=== PATIENT | male | born 1995 | race Asian ===

== ENCOUNTER 2016-09-14 02:14 | Emergency (ER) | payer OTHER ==
[~2016-09-14] VITALS: Ht 165.1 cm; Wt 80.7 kg
[2016-09-14 02:21] VITALS: TEMP 36.7; Ht 165.1 cm; Wt 80.7 kg
--- NOTE | 2016-09-14 02:25 | EMERGENCY ROOM VISIT NOTE ---
History Report prepared by Ronda: Tawanna Sepulveda Under the Supervision of: Dr. Srinivasan Barreto M.D. First contact with patient: 02:19 Stated Complaint: ALCOHOL OVERDOSE History of Present Illness The patient is a 20 year old male who presents to the Emergency Room with complaints of an alcohol overdose that occurred prior to arrival. Per EMS the patient was drinking Trash-cans this evening that consist of vodka and redbull. EMS notes that they [place] the patient [place] stumbling into traffic. The patient denies any drug use. He denies any trauma. The history is limited secondary to alcohol intoxication. Source of History: patient, EMS History Limited By: intoxication Onset: prior to arrival Position: other (global) Quality: other (alcohol overdose) Review of Systems The history and ROS is limited secondary to alcohol intoxication. Past Medical & Surgical Unobtainable secondary to alcohol intoxication. Family History Unobtainable Social History Smoking Status: Unknown if Ever Smoked Alcohol Use: occasionally Housing Status: lives with friends Occupation Status: [employer] student Current/Historical Medications No Active Prescriptions or Reported Meds Allergies Coded Allergies: No Known Allergies (Unverified , 09/14/16) Physical Exam Vital Signs Date Time Temp Pulse Resp B/P Pulse Ox O2 Delivery O2 Flow Rate FiO2 09/14/16 08:09 78 16 146/85 99 09/14/16 06:38 80 18 133/73 98 Room Air 09/14/16 06:28 88 09/14/16 05:20 83 18 119/58 96 Room Air 09/14/16 03:43 96 18 120/72 98 Room Air 09/14/16 02:34 120 09/14/16 02:21 36.7 72 20 128/52 96 Room Air Physical Exam GENERAL: Patient is heavily intoxicated. Smells of alcohol. Well appearing and in no acute distress. HEAD: No evidence of Trauma. AT/NC EYES: Injected conjunctiva. Normal EOM. Pupils equal/reactive. ENT: Mucous membranes moist, no nasal congestion, . NECK: No step-offs, no adenopathy, no meningismus, trachea is midline. LUNGS: No dyspnea. Clear to auscultation and equal bilaterally. No wheeze, no rhonchi. HEART: Tachycardic rate and regular rhythm. No murmurs, rubs, gallops appreciated. ABDOMEN: Soft, nontender, bowel sounds positive, no masses appreciated, no peritonitis. BACK: No midline tenderness, no CVA tenderness EXTREMITIES: Normal motion all extremities, no cyanosis, no edema. NEUROLOGIC: Intoxicated. Mostly alert, oriented. No acute motor or sensory deficits, no focal weakness, cranial nerves grossly intact. SKIN: No rash, no jaundice, no diaphoresis. Medical Decision & Procedures Laboratory Results 09/14/16 02:46 Test 09/14/16 02:46 Anion Gap 11.0 mmol/L (3-11) Est Creatinine Clear Calc Drug Dose 115.5 ml/min Estimated GFR () 125.7 Estimated GFR (Non- 108.4 BUN/Creatinine Ratio 15.5 (10-20) Calcium Level 8.4 mg/dl (8.5-10.1) Ethyl Alcohol mg/dL 296.0 mg/dl (0-3) Laboratory results as reviewed by me. ED Course 0218: The patient was evaluated in room A3. A complete history and physical exam was performed. 0341: I reevaluated the patient and he is sleeping comfortably. 0448: I reevaluated the patient and he is sleeping comfortably. 0541: I reevaluated the patient and he is resting comfortably. Medical Decision Differential: Alcohol Intoxication, Drug Intoxication, Electrolyte Abnormality, Trauma, Intracranial Event, Toxicological, Excited Delirium, Serotonin Syndrome , amongst other pathologies entertained. 20 yr old intoxicated male brought in by EMS after being found stumbling down almost accidently walking in to traffic. Patient with no evidence nor history for trauma. Protecting airway and breathing comfortably throughout ED stay. EtOH positive. Monitored and discharged when awake, alert, oriented and denies any complaints. Impression Primary Impression: Alcohol abuse Additional Impression: Alcohol use with intoxication Scribe Attestation The scribe's documentation has been prepared under my direction and personally reviewed by me in its entirety. I confirm that the note above accurately reflects all work, treatment, procedures, and medical decision making performed by me. Departure Information Dispostion Home / Self-Care Prescriptions No Active Prescriptions or Reported Meds Referrals [facility] (PCP) Forms HOME CARE DOCUMENTATION FORM, IMPORTANT VISIT INFORMATION Patient Instructions Alcohol Intoxication - [facility], [facility]: [employer] Students and Alcohol Related Visits , My [facility] Health Problem Qualifiers
[2016-09-14 03:25] LABS: BUN/CREATININE RATIO 15.5 (10-20); CALCIUM 8.4 mg/dl (8.5-10.1); CREATININE 0.99 mg/dl (0.60-1.40); POTASSIUM 3.4 mmol/L (3.5-5.1)
[2016-09-14 08:09] VITALS: BP 146/85; PULSE 78; O2SAT 99
== END 2016-09-14 08:10 | disposition home or self-care (01) ==
LOC: EDBD 02:14 → C.EDA 02:16
DX: F10.129 Alcohol abuse with intoxication, unspecified (principal)